=== PATIENT | male | born 1960 | race African-American/Black ===

== ENCOUNTER 2018-01-27 15:45 | Emergency (ER) | payer OTHER ==
[~2018-01-27] VITALS: Ht 172.7 cm; Wt 69.4 kg
[~2018-01-27 15:45] MED LIST: METFORMIN HCL1000 MG; WELLBUTRIN XL300 MG; ZESTRIL10 MG
[2018-01-27] MEDS ORDERED: GLIPIZIDE10 MG (16:16)
[2018-01-27] MEDS ORDERED: G-DOLOGEN 650-1 EACH (16:16)
[2018-01-27] MEDS ORDERED: JANUVIA100 MG (16:17)
[2018-01-28] MEDS ORDERED: PEPCID AC20 MG PO (07:22)
[2018-01-28] MEDS ORDERED: METRONIDAZOLE500 MG PO (07:22)
[2018-01-28] MEDS ORDERED: CIPRO500 MG PO (07:22)
[2018-01-28] MEDS ORDERED: INTESTINEX680 M1 PO (07:22)
[2018-01-28] MEDS ORDERED: LEVSIN/SL0.125 MG PO (07:22)
== END 2018-01-28 08:16 | disposition home or self-care (01) ==
LOC: ER 15:45
DX: A04.8 Other specified bacterial intestinal infections (principal)

== ENCOUNTER 2019-08-16 21:37 | Emergency (ER) | payer OTHER ==
[~2019-08-16] VITALS: Ht 172.7 cm; Wt 68.0 kg
[~2019-08-16 21:37] MED LIST changes: +CIPRO500 MG PO; +G-DOLOGEN 650-1 EACH; +GLIPIZIDE10 MG; +INTESTINEX680 M1 PO; +JANUVIA100 MG; +LEVSIN/SL0.125 MG PO; +METRONIDAZOLE500 MG PO; +PEPCID AC20 MG PO
[2019-08-16] MEDS ORDERED: FORTAMET500 MG (21:58)
[2019-08-16] MEDS ORDERED: LANTUS SOL100 UNIT/1 (21:58)
[2019-08-16] MEDS ORDERED: HUMALOG100 UNIT/1 (21:59)
== END 2019-08-16 22:32 | disposition home or self-care (01) ==
LOC: ER 21:37
DX: G24.3 Spasmodic torticollis (principal)

== ENCOUNTER 2019-10-26 14:06 | Emergency (ER) | payer OTHER ==
[~2019-10-26] VITALS: Ht 172.7 cm; Wt 73.9 kg
[~2019-10-26 14:06] MED LIST changes: +FORTAMET500 MG; +HUMALOG100 UNIT/1; +LANTUS SOL100 UNIT/1
== END 2019-10-26 17:25 | disposition home or self-care (01) ==
LOC: ER 14:06
DX: J03.90 Acute tonsillitis, unspecified (principal)

== ENCOUNTER 2019-10-29 20:11 | Emergency (ER) | payer OTHER ==
[~2019-10-29] VITALS: Ht 172.7 cm; Wt 73.5 kg
[2019-10-30] MEDS ORDERED: FLONASE16 GM NASAL (02:32)
[2019-10-30] MEDS ORDERED: ORASEP SPRAY30 ML MM (02:32)
[2019-10-30] MEDS ORDERED: DOLOGESIC 500-1 EACH PO (02:32)
[2019-10-30] MEDS ORDERED: ZYNCOF 20-400120 ML PO (02:32)
== END 2019-10-30 02:40 | disposition home or self-care (01) ==
LOC: ER 20:11
DX: J06.9 Acute upper respiratory infection, unspecified (principal)

== ENCOUNTER 2022-12-01 07:05 | Outpatient (CLI) | payer OTHER ==
[~2022-12-01 07:05] MED LIST changes: +DOLOGESIC 500-1 EACH PO; +FLONASE16 GM NASAL; +ORASEP SPRAY30 ML MM; +ZYNCOF 20-400120 ML PO
== END 2022-12-01 07:06 | disposition home or self-care (01) ==
LOC: NUCLEAR 07:05
PROVIDERS: ATTEND Internal Medicine Gastroenterology
DX: E11.43 Type 2 diabetes mellitus with diabetic autonomic (poly)neuropathy (principal); K31.84 Gastroparesis
CPT/HCPCS: 78264; A9541

== ENCOUNTER 2023-03-11 10:04 | Inpatient (IN) | payer OTHER ==
[~2023-03-11] VITALS: Ht 172.7 cm; Wt 70.3 kg
[2023-03-11] MEDS ORDERED: CLONAZEPAM2 MG PO (10:20)
[2023-03-11] MEDS ORDERED: DICLOFENAC POTA50 MG PO (10:20)
== END 2023-03-14 17:53 | disposition home or self-care (01) | DRG 392 ==
LOC: ER 10:04 → EDSEX 10:09 → MEDI 21:28
PROVIDERS: ADMIT Internal Medicine; ATTEND Internal Medicine
PROC: BW40ZZZ Ultrasonography of Abdomen (ICD-10-PCS; principal; 2023-03-12)
PROC: BW21YZZ Computerized Tomography (CT Scan) of Abdomen and Pelvis using Other Contrast (ICD-10-PCS; 2023-03-12)
DX: K52.89 Other specified noninfective gastroenteritis and colitis (principal); N17.8 Other acute kidney failure; K56.609 Unspecified intestinal obstruction, unspecified as to partial versus complete obstruction; E86.0 Dehydration; D72.828 Other elevated white blood cell count; I10 Essential (primary) hypertension; E11.65 Type 2 diabetes mellitus with hyperglycemia; Z79.4 Long term (current) use of insulin

== ENCOUNTER 2023-03-21 18:24 | Inpatient (IN) | payer OTHER ==
[~2023-03-21] VITALS: Ht 172.7 cm; Wt 68.0 kg
[~2023-03-21 18:24] MED LIST changes: +CLONAZEPAM2 MG PO; +DICLOFENAC POTA50 MG PO
== END 2023-03-29 12:31 | disposition home or self-care (01) | DRG 853 ==
LOC: ER 18:24 → MEDI 22:14 → MEDJ 22:14 → ICU 03-23 22:04 → MEDJ 03-27 20:38
PROVIDERS: Surgery; ADMIT Internal Medicine; ATTEND Internal Medicine
PROC: 0W9J0ZZ Drainage of Pelvic Cavity, Open Approach (ICD-10-PCS; 2023-03-23)
PROC: 0WQF0ZZ Repair Abdominal Wall, Open Approach (ICD-10-PCS; 2023-03-23)
PROC: 0FT40ZZ Resection of Gallbladder, Open Approach (ICD-10-PCS; principal; 2023-03-23 20:00)
PROC: 02HV33Z Insertion of Infusion Device into Superior Vena Cava, Percutaneous Approach (ICD-10-PCS; 2023-03-24)
PROC: 5A1945Z Respiratory Ventilation, 24-96 Consecutive Hours (ICD-10-PCS; 2023-03-24)
PROC: 5A0935A Assistance with Respiratory Ventilation, Less than 24 Consecutive Hours, High Flow/Velocity Cannula (ICD-10-PCS; 2023-03-25)
PROC: 4A12X4Z Monitoring of Cardiac Electrical Activity, External Approach (ICD-10-PCS; 2023-03-27)
PROC: 8E0ZXY6 Isolation (ICD-10-PCS; 2023-03-27)
DX: A41.59 Other Gram-negative sepsis (principal); K80.00 Calculus of gallbladder with acute cholecystitis without obstruction; K65.1 Peritoneal abscess; K75.0 Abscess of liver; E87.21 Acute metabolic acidosis; E87.3 Alkalosis; K82.A1 Gangrene of gallbladder in cholecystitis; K43.9 Ventral hernia without obstruction or gangrene; B96.1 Klebsiella pneumoniae [K. pneumoniae] as the cause of diseases classified elsewhere; E11.9 Type 2 diabetes mellitus without complications; I10 Essential (primary) hypertension; Z79.84 Long term (current) use of oral hypoglycemic drugs; Z53.31 Laparoscopic surgical procedure converted to open procedure